=== PATIENT | male | born 1970 | race Caucasian/White ===

== ENCOUNTER 2020-11-04 15:26 | Observation (INO) ==
[2020-11-04 17:13] LABS: Basophils # 0.1 10*3/uL (0.0-0.2); Basophils % 0.8 % (0.0-0.8); Eosinophils # 0.1 10*3/uL (0.0-0.87); Eosinophils % 1.4 % (0.00-10.9); Immature Granulocytes % 0.3 %; Immature Granulocytes Absolute 0.02 #; Lymphocytes # 1.8 10*3/uL (1.4-4.0); Lymphocytes % 27.8 % (21.2-54.2); Mean Corpuscular HGB Conc 33.3 GM/DL (32-36); Mean Corpuscular Volume 86.9 FL (87-102); Mean Platelet Volume 9.5 FL (9.6-12.0); Monocytes % 6.7 % (1.7-12.7); Platelet Count 281 T/CUMM (130-400); Red Blood Count 5.18 MC/CUMM (3.8-5.5); Red Cell Distribution Width 14.1 % (9.3-17.3); White Blood Count 6.6 T/CUMM (4-12)
[2020-11-04 17:23] LABS: Partial Thromboplastin Time 24.8 SECS (23.9-33.8)
[2020-11-04 17:25] LABS: Albumin 3.9 G/DL (3.4-5.0); Bilirubin,Total 0.6 MG/DL (0.2-1.0); Calcium 9.2 MG/DL (8.5-10.1); Osmolality,Calculated 278.5 MOS/KG (273-304); Potassium 4.2 MMOL/L (3.5-5.1); Total Protein 7.6 G/DL (6.4-8.2)
[2020-11-04] MEDS ORDERED: ONDANSETRON 4 MG/2 ML VIAL IV PRN (17:57)
[2020-11-04] MEDS ORDERED: GLUCAGON 1 MG VIAL IM PRN (17:57)
[2020-11-04] MEDS ORDERED: DEXTROSE 50% 25 GM/50 ML VIAL IV PRN (17:57)
[2020-11-04] MEDS ORDERED: ENOXAPARIN 40 MG/0.4 ML SYRINGE SUBCUT SCH (18:00)
[2020-11-04] MEDS ORDERED: ATORVASTATIN 80 MG TABLET PO SCH (21:00)
[2020-11-04] MEDS: TICAGRELOR 90 MG TABLET PO SCH (21:36)
[2020-11-04] MEDS: SACUBITRIL/VALSARTAN 49-51 MG TABLET PO SCH (21:36)
[2020-11-05 00:43] LABS: Basophils # 0.1 10*3/uL (0.0-0.2); Basophils % 0.6 % (0.0-0.8); Eosinophils # 0.1 10*3/uL (0.0-0.87); Eosinophils % 1.1 % (0.00-10.9); Hematocrit 42.7 VOL% (42.0-52.0); Hemoglobin 14.3 GM/DL (14.0-18.0); Immature Granulocytes % 0.2 %; Immature Granulocytes Absolute 0.02 #; Lymphocytes # 2.2 10*3/uL (1.4-4.0); Lymphocytes % 26.6 % (21.2-54.2); Mean Corpuscular HGB Conc 33.5 GM/DL (32-36); Mean Corpuscular Volume 85.6 FL (87-102); Monocytes % 8.5 % (1.7-12.7); Platelet Count 268 T/CUMM (130-400); Red Blood Count 4.99 MC/CUMM (3.8-5.5); White Blood Count 8.1 T/CUMM (4-12)
[2020-11-05 01:06] LABS: Calcium 8.8 MG/DL (8.5-10.1); Osmolality,Calculated 275.5 MOS/KG (273-304); Potassium 3.8 MMOL/L (3.5-5.1); Risk Ratio 4.59; Thyroid Stimulating Hormone 2.72 uIU/ml (0.358-3.74); VLDL CHOLESTEROL 27.6 MG/DL
[2020-11-05] MEDS: SACUBITRIL/VALSARTAN 49-51 MG TABLET PO SCH (08:50)
[2020-11-05] MEDS: TICAGRELOR 90 MG TABLET PO SCH (08:51)
[2020-11-05] MEDS ORDERED: SPIRONOLACTONE 25 MG TABLET PO SCH (09:00)
[2020-11-05] MEDS ORDERED: PANTOPRAZOLE 40 MG TABLET PO SCH (09:00)
[2020-11-05] MEDS ORDERED: METOPROLOL SUCCINATE XL 25 MG TABLET PO SCH (09:00)
[2020-11-05] MEDS ORDERED: ASPIRIN EC 81 MG TABLET PO SCH (09:00)
[2020-11-05] MEDS ORDERED: KETOROLAC 30 MG/1 ML VIAL IV ONE (09:26)
[2020-11-05 12:26] VITALS: BP 115/64
== END 2020-11-05 14:46 | disposition home or self-care (01) ==
LOC: N.EDINP 15:26 → N.ED 15:26 → N.EDINP 20:07 → N.TELES 20:45
PROVIDERS: ADMIT Internal Medicine Geriatric Medicine; ATTEND Internal Medicine Geriatric Medicine